=== PATIENT | male | born 1975 | race Caucasian/White ===

== ENCOUNTER 2018-04-24 13:56 | Emergency (ER) | payer MEDICAID ==
[~2018-04-24] VITALS: Ht 177.8 cm; Wt 81.2 kg
[2018-04-24 14:19] VITALS: Ht 177.8 cm; Wt 81.2 kg
[2018-04-24 17:47] LABS: BASOPHIL % 0.2 % (0-2); PLATELET COUNT 336 x10^3mcL (130-400)
[2018-04-24 17:52] LABS: RED CELL DISTRIBUTION WIDTH 14.8 % (11.5-14.5)
[2018-04-24 17:56] LABS: CALCIUM 9.5 mg/dL (8.5-10.1); CARBON DIOXIDE 27.9 mmol/L (21-32); CHLORIDE SERUM 100 mmol/L (98-107); CREATININE SERUM 1.2 mg/dL (0.7-1.3); GFR1 > 60 mL/min; GLUCOSE SERUM 106 mg/dL (74-106); POTASSIUM SERUM 3.8 mmol/L (3.5-5.1); SODIUM SERUM 137 mmol/L (136-145)
[2018-04-24 18:04] LABS: ALKALINE PHOSPHATASE 150 U/L (46-116); ALT/SGPT 40 U/L (16-63); AST/SGOT 24 U/L (15-37); BILIRUBIN TOTAL 0.7 mg/dL (0.20-1.00); MAGNESIUM 2.3 mg/dL (1.8-2.4); TOTAL PROTEIN, SERUM 9.5 g/dL (6.4-8.2)
[2018-04-24 18:40] LABS: AMPHETAMINE QUAL UR NONE DETECTED (See below)
[2018-04-24 18:58] LABS: ERYTHROCYTE SED RATE 45 mm/hr (0-15)
[2018-04-24 19:43] VITALS: BP 175/132
== END 2018-04-24 19:42 | disposition home or self-care (01) ==
LOC: ED 13:56
PROVIDERS: Emergency Medicine
DX: M79.1 Myalgia (principal); M06.9 Rheumatoid arthritis, unspecified; I16.0 Hypertensive urgency; J45.909 Unspecified asthma, uncomplicated; Z88.8 Allergy status to other drugs, medicaments and biological substances
CPT/HCPCS: G0480; J0360; J1885; J2800